=== PATIENT | female | born 1995 | race Caucasian/White ===

== ENCOUNTER 2016-12-05 21:15 | Emergency (ER) | payer OTHER ==
[2016-12-05 21:26] VITALS: BP 124/76
[2016-12-05] MEDS ORDERED: Sodium Chloride 0.9% 1,000 ML IV STA (21:42)
[2016-12-05] MEDS ORDERED: Ondansetron 4 MG/2 ML SDV IVPUSH ONE (21:42)
[2016-12-05] MEDS ORDERED: HYDROmorphone 0.5 MG/0.5 ML Syringe IVPUSH ONE (21:45)
[2016-12-05] MEDS: Sodium Chloride 0.9% 10 ML Syringe FLUSH PRN ×2 (22:00→23:55)
--- NOTE | 2016-12-05 22:33 | EDM.PDOC ---
ED HPI GI/ABDOMINAL - General Chief Complaint: Abdominal Pain Stated Complaint: RIGHT SIDE PAIN Time Seen by Provider: 12/05/16 21:36 Source of Information: Reports: Patient History Limitations: Reports: No limitations - History of Present Illness INITIAL COMMENTS - FREE TEXT/NARRATIVE: The patient presents with right lower quadrant abdominal pain. This started about 5pm tonight. It was dull to start with and it has gotten worse over the past hour. She also has a low grade temp of 100.7. She last ate around 5pm. Last BM was today and there was nothing abnormal. She has no dysuria. She has nausea but no vomiting. She does not think she is . She still has her gallbladder and appendix. Timing/Duration: Reports: Hour(s): (5pm tonight) Location: [facility] Quality: Reports: stabbing Severity: moderate Context: Denies: sick contact, bad/questionable food, out of country travel, recent surgery, recent trauma, lifting, activity/exercise Associated Symptoms (-Female): Reports: fever/chills, nausea/vomiting. Denies : chest pain, constipation - Related Data Allergies/ADRs: Allergies Allergy/AdvReac Type Severity Reaction Status Date / Time No Known Allergies Allergy Verified 12/05/16 21:26 Home Meds: Home Meds Nitrofurantoin [place]/Macrocryst [Macrobid] 100 mg PO BID #10 cap 12/06/16 [Rx] Tamsulosin HCl [Flomax] 0.4 mg PO DAILY #7 cap.er.24h 12/06/16 [Rx] Past Medical History - Past Health History Medical/Surgical History: Denies Medical/Surgical History - Past Surgical History HEENT Surgical History: Reports: Oral surgery Social & Family History - Tobacco Use Smoking Status *Q: Never Smoker Second Hand Smoke Exposure: No - Caffeine Use Caffeine Use: Reports: None - Recreational Drug Use Recreational Drug Use: No ED ROS GENERAL - Review of Systems Review Of Systems: See Below Constitutional: Reports: fever HEENT: Reports: No symptoms Respiratory: Reports: No Symptoms Cardiovascular: Reports: No symptoms Endocrine: Reports: no symptoms GI/Abdominal: Reports: Abdominal pain, Nausea. Denies: Diarrhea, Vomiting : Reports: no symptoms Musculoskeletal: Reports: no symptoms Skin: Reports: no symptoms Neurological: Reports: No Symptoms ED EXAM, GI/ABD - Physical Exam Exam: See Below Exam Limited By: No limitations General Appearance: alert, no apparent distress Ears: normal external exam Nose: normal inspection Head: atraumatic, normocephalic Neck: normal inspection Respiratory/Chest: no respiratory distress, lungs clear, normal breath sounds Cardiovascular: regular rate, rhythm, no edema, no murmur GI/Abdominal: soft, no organomegaly, tenderness (Moderate pain upon palpation to the right lower abdomen) Extremities: normal inspection Course - Vital Signs Last Recorded V/S: Last Vital Signs Temp 100.7 F H 12/05/16 21:22 Pulse 94 12/05/16 21:22 Resp 18 12/05/16 21:22 BP 124/76 12/05/16 21:22 Pulse Ox 98 12/05/16 21:22 - Orders/Labs/Meds Orders: Active Orders 24 hr Category Date Time Status Peripheral IV Care [RC] . DIRECTED Care 12/05/16 21:43 Active Abdomen Pelvis w Cont [CT] Stat Exams 12/05/16 21:42 Taken Sodium Chloride 0.9% [Saline Flush] Med 12/05/16 21:42 Active 10 ml FLUSH ASDIRECTED PRN ED Antiemetic Medication Reflex [OM.PC] Stat Oth 12/05/16 21:43 Ordered Peripheral IV Insertion Adult [OM.PC] Stat Oth 12/05/16 21:42 Ordered Medication Orders Sodium Chloride (Saline Flush) 10 ml FLUSH ASDIRECTED PRN PRN Reason: Keep Vein Open Last Admin: 12/05/16 23:55 Dose: 10 ml Admin: 12/05/16 22:00 Dose: 10 ml Labs: Laboratory Tests 12/05/16 12/05/16 12/05/16 Range/Units 22:00 22:00 22:00 WBC 6.17 (3.98-10.04) K/mm3 RBC 4.41 (3.98-5.22) M/mm3 Hgb 12.5 (11.2-15.7) gm/L Hct 38.4 (34.1-44.9) % MCV 87.1 (79.4-94.8) fl MCH 28.3 (25.6-32.2) pg MCHC 32.6 (32.2-35.5) g/dl RDW Std Deviation 42.0 (36.4-46.3) fL Plt Count 294 (182-369) K/mm3 MPV 9.7 (9.4-12.3) fl Neut % (Auto) 71.8 H (34.0-71.1) % Lymph % (Auto) 16.7 L (19.3-51.7) % Banner % (Auto) 10.7 (4.7-12.5) % Eos % (Auto) 0.5 L (0.7-5.8) Baso % (Auto) 0.3 (0.1-1.2) % Neut # (Auto) 4.43 (1.56-6.13) K/mm3 Lymph # (Auto) 1.03 L (1.18-3.74) K/mm3 [place] # (Auto) 0.66 H (0.24-0.36) K/mm3 Eos # (Auto) 0.03 L (0.04-0.36) K/mm3 Baso # (Auto) 0.02 (0.01-0.08) K/mm3 Sodium 139 (136-145) mEq/L Potassium 3.6 (3.5-5.1) mEq/L Chloride 103 (98-107) mEq/L Carbon Dioxide 24 (21-32) mEq/L Anion Gap 15.6 H (5-15) BUN 10 (7-18) mg/dL Creatinine 0.9 (0.55-1.02) mg/dL Est Cr Clr Drug Dosing 81.79 mL/min Estimated GFR (MDRD) > 60 (>60) mL/min BUN/Creatinine Ratio 11.1 L (14-18) Glucose 99 (74-106) mg/dL Calcium 9.7 (8.5-10.1) mg/dL Total Bilirubin 0.5 (0.2-1.0) mg/dL AST 16 (15-37) U/L ALT 20 (14-59) U/L Alkaline Phosphatase 69 (46-116) U/L Total Protein 8.7 H (6.4-8.2) g/dl Albumin 4.2 (3.4-5.0) g/dl Globulin 4.5 gm/dL Albumin/Globulin Ratio 0.9 L (1-2) Lipase 289 (73-393) U/L HCG, Qual Negative (NEGATIVE) Urine Color (Yellow) Urine Appearance (Clear) Urine pH (5.0-8.0) Ur Specific [place] (1.005-1.030) Urine Protein (Negative) Urine Glucose (UA) (Negative) Urine Ketones (Negative) Urine Occult Blood (Negative) Urine Nitrite (Negative) Urine Bilirubin (Negative) Urine Urobilinogen (0.2-1.0) Ur Leukocyte Esterase (Negative) Urine RBC (0-5) /hpf Urine WBC (0-5) /hpf Ur Epithelial Cells Ur Squamous Epith Cells (0-5) /hpf Urine Bacteria (FEW) /hpf Urine Mucus (FEW) /hpf 12/05/16 Range/Units 23:11 WBC (3.98-10.04) K/mm3 RBC (3.98-5.22) M/mm3 Hgb (11.2-15.7) gm/L Hct (34.1-44.9) % MCV (79.4-94.8) fl MCH (25.6-32.2) pg MCHC (32.2-35.5) g/dl RDW Std Deviation (36.4-46.3) fL Plt Count (182-369) K/mm3 MPV (9.4-12.3) fl Neut % (Auto) (34.0-71.1) % Lymph % (Auto) (19.3-51.7) % [place] % (Auto) (4.7-12.5) % Eos % (Auto) (0.7-5.8) Baso % (Auto) (0.1-1.2) % Neut # (Auto) (1.56-6.13) K/mm3 Lymph # (Auto) (1.18-3.74) K/mm3 [place] # (Auto) (0.24-0.36) K/mm3 Eos # (Auto) (0.04-0.36) K/mm3 Baso # (Auto) (0.01-0.08) K/mm3 Sodium (136-145) mEq/L Potassium (3.5-5.1) mEq/L Chloride (98-107) mEq/L Carbon Dioxide (21-32) mEq/L Anion Gap (5-15) BUN (7-18) mg/dL Creatinine (0.55-1.02) mg/dL Est Cr Clr Drug Dosing mL/min Estimated GFR (MDRD) (>60) mL/min BUN/Creatinine Ratio (14-18) Glucose (74-106) mg/dL Calcium (8.5-10.1) mg/dL Total Bilirubin (0.2-1.0) mg/dL AST (15-37) U/L ALT (14-59) U/L Alkaline Phosphatase (46-116) U/L Total Protein (6.4-8.2) g/dl Albumin (3.4-5.0) g/dl Globulin gm/dL Albumin/Globulin Ratio (1-2) Lipase (73-393) U/L HCG, Qual (NEGATIVE) Urine Color Yellow (Yellow) Urine Appearance Clear (Clear) Urine pH 7.0 (5.0-8.0) Ur Specific [place] 1.015 (1.005-1.030) Urine Protein 1+ H (Negative) Urine Glucose (UA) Negative (Negative) Urine Ketones Negative (Negative) Urine Occult Blood 1+ H (Negative) Urine Nitrite Negative (Negative) Urine Bilirubin Negative (Negative) Urine Urobilinogen 0.2 (0.2-1.0) Ur Leukocyte Esterase 2+ H (Negative) Urine RBC 0-5 (0-5) /hpf Urine WBC 30-40 H (0-5) /hpf Ur Epithelial Cells Not Reportable Ur Squamous Epith Cells 0-5 (0-5) /hpf Urine Bacteria Moderate H (FEW) /hpf Urine Mucus Not seen (FEW) /hpf Meds: Medications Generic Name Dose Route Start Last Admin Trade Name Freq PRN Reason Stop Dose Admin Sodium Chloride 10 ml 12/05/16 21:42 12/05/16 23:55 Saline Flush FLUSH 10 ml ASDIRECTED PRN Administration Keep Vein Open Discontinued Medications Generic Name Dose Route Start Last Admin Trade Name Freq PRN Reason Stop Dose Admin Diatrizoate Meglum/Diatrizoate Sod 90 ml 12/05/16 23:29 12/05/16 23:54 Gastrografin 37% PO 12/05/16 23:30 90 ml ONETIME ONE Administration Hydromorphone HCl 0.5 mg 12/05/16 21:45 12/05/16 22:14 Dilaudid IVPUSH 12/05/16 21:46 0.5 mg ONETIME ONE Administration Sodium Chloride 1,000 mls @ 1,000 mls/hr 12/05/16 21:42 12/05/16 22:09 Normal Saline IV 12/05/16 22:41 1,000 mls/hr .BOLUS STA Administration Iopamidol 125 ml 12/05/16 23:29 12/05/16 23:54 Isovue-300 (61%) IVPUSH 12/05/16 23:30 125 ml ONETIME ONE Administration Ondansetron HCl 4 mg 12/05/16 21:42 12/05/16 22:11 Zofran IVPUSH 12/05/16 21:43 4 mg ONETIME ONE Administration - Re-Assessments/Exams Free Text/Narrative Re-Assessment/Exam: 12/05/16 22:32 I ordered an IV NS 1L bolus, zofran 4mg IV and dilaudid 0.5mg IV. I will get labs, UA and CT. 12/06/16 00:54 Her WBC was normal. Her CMP looks good. Her UA shows some blood and a UTI. Her CT shows question of small punctate 2mm calculus at the proximal right ureter. Correlate with any symptoms of hemaruria. Bilateral adnexal cysts. Trace free fluid in the pelvis. No signs of appendicitis. She did have some flank pain when this all started. It appear she has a kidney stone and UTI. I will give her a macrobid here and flomax and a prescription for more as well as a prescription for some percocet. Departure - Departure Time of Disposition: 01:00 Disposition: Home, Self-Care 01 Condition: good Clinical Impression: Kidney stone, Ureteral calculus, right UTI (urinary tract infection) Qualifiers: Urinary tract infection type: site unspecified Hematuria presence: with hematuria Qualified Code(s): N39.0 - Urinary tract infection, site not specified ; R31.9 - Hematuria, unspecified Prescriptions: Nitrofurantoin Banner/Macrocryst [Macrobid] 100 mg PO BID #10 cap Tamsulosin HCl [Flomax] 0.4 mg PO DAILY #7 cap.er.24h Referrals: Pam Mcleod MD [Primary Care Provider] - 1 Week Gary Mcfarland MD [Physician] - 1 Week Forms: ED Department Discharge Additional Instructions: Drink plenty of fluids. Take the flomax daily until gone. Take the macrobid 2 times per day for 5 days. Take motrin or aleve for pain or use the percocet for pain. Please return if you are worse. - My Orders Last 24 Hours: My Active Orders 12/05/16 21:42 Abdomen Pelvis w Cont [CT] Stat Sodium Chloride 0.9% [Saline Flush] 10 ml FLUSH ASDIRECTED PRN Peripheral IV Insertion Adult [OM.PC] Stat 12/05/16 21:43 Peripheral IV Care [RC] . DIRECTED ED Antiemetic Medication Reflex [OM.PC] Stat - Assessment/Plan Last 24 Hours: My Active Orders 12/05/16 21:42 Abdomen Pelvis w Cont [CT] Stat Sodium Chloride 0.9% [Saline Flush] 10 ml FLUSH ASDIRECTED PRN Peripheral IV Insertion Adult [OM.PC] Stat 12/05/16 21:43 Peripheral IV Care [RC] . DIRECTED ED Antiemetic Medication Reflex [OM.PC] Stat
[2016-12-05] MEDS ORDERED: Iopamidol 612 MG/ML 150 ML Bottle IVPUSH ONE (23:29)
[2016-12-05] MEDS ORDERED: Diatrizoate Meglumine/Diatrizoate Sodium 37% 120 ML Bottle PO ONE (23:29)
[2016-12-06] MEDS ORDERED: Nitrofurantoin Monohydrate/Macrocrystalline 100 MG Cap PO ONE (00:56)
[2016-12-06] MEDS ORDERED: Tamsulosin 0.4 MG Cap.ER PO ONE (00:56)
--- NOTE | 2016-12-06 11:45 | CT ---
CT abdomen and pelvis Technique: Multiple axial sections were obtained from above the dome of the diaphragm inferiorly through the pubic symphysis. Intravenous and oral contrast was utilized. Comparison: Previous CT study of 03/24/15. Findings: Visualized lung bases are clear. Liver shows no focal parenchymal abnormality. Spleen appears within normal limits. Pancreas appears normal. Adrenal glands show no nodule. Slightly prominent collecting system of the right kidney is seen. This is caused by a proximal obstructing stone within the right ureter measuring approximately 5 mm. Cyst noted within the lower right kidney measuring approximately 1.1 cm in size. Aorta shows no aneurysmal dilatation. No retroperitoneal adenopathy or mesenteric abnormalities are seen. No pelvic mass or adenopathy noted. Minimal free fluid seen within the pelvis which is felt to be physiologic. Mild increased stool noted within the transverse and right colon. Appendix is not optimally seen but no dilated appendix is identified. Delayed images show contrast within the ureters and bladder. Impression: 1. Slight right-sided hydronephrosis felt to be caused by 5 mm obstructing stone within the proximal right ureter. 2. Incidental right renal cyst. 3. Mild increased stool within the right colon and transverse colon. Agree with preliminary report issued by [employer], although I believe the obstructing stone is larger than 2 mm as noted on the preliminary report (preliminary report dictated on 12/06/16, 1:39 AM Central Time) Diagnostic code #3
== END 2016-12-06 01:26 | disposition home or self-care (01) ==
LOC: JD.ED 21:15
DX: N13.2 Hydronephrosis with renal and ureteral calculous obstruction (principal); N39.0 Urinary tract infection, site not specified; R31.9 Hematuria, unspecified
CPT/HCPCS: 36415; 74177; 80053; 81001; 83690; 84703; 85025; 96361; 96374; 96375; 99284; A9270; J1170; J2405; J7040; J7050; Q9963; Q9967

== ENCOUNTER 2019-12-15 19:00 | Inpatient (IN) | payer OTHER ==
[2019-12-15] MEDS ORDERED: Nalbuphine 10 MG/ML Syringe IVPUSH PRN (19:50)
[2019-12-15] MEDS ORDERED: Sodium Chloride 0.9% 10 ML Syringe FLUSH PRN (19:50)
[2019-12-15] MEDS ORDERED: Ondansetron 4 MG/2 ML SDV IVPUSH PRN (19:50)
[2019-12-15] MEDS ORDERED: Misoprostol 25 MCG (1/4 of 100 MCG) Tab VAG ONE (19:52)
[2019-12-15] MEDS ORDERED: Misoprostol 25 MCG (1/4 of 100 MCG) Tab ONE (19:58)
[2019-12-15] MEDS ORDERED: Oxytocin/Lactated Ringers 10 UNIT/1,000 ML BAG IV SCH (20:00)
[2019-12-15] MEDS ORDERED: ePHEDrine 50 MG/ML SDV IVPUSH PRN (22:16)
[2019-12-15] MEDS ORDERED: diphenhydrAMINE 50 MG/ML SDV IVPUSH PRN (22:16)
[2019-12-15] MEDS ORDERED: Bupivacaine/fentaNYL/NS 100 ML Bag EPIDUR PRN (22:16)
[2019-12-16] MEDS ORDERED: Lidocaine 2% with EPINEPHrine 1:200,000 20 ML SDV ONE
[2019-12-16] MEDS ORDERED: Bupivacaine 0.25% 10 ML SDV ONE
[2019-12-16] MEDS ORDERED: Misoprostol 25 MCG (1/4 of 100 MCG) Tab VAG ONE (01:04)
--- NOTE | 2019-12-16 01:24 | PCM.LDHP ---
L&D History of Present Illness - General Date of Service: 12/16/19 Admit Problem/Dx: Patient Status Order with Admit Dx/Problem 12/15/19 19:50 Patient Status [ADT] Routine Admission Diagnosis/Problem Admission Diagnosis/Problem - History of Present Illness Introduction:: 24 year old at 39w2 here for induction of labor PNC with myself without complications - early suspicion of club foot on ultrasound. Otherwise no issues. - Related Data Allergies/Adverse Reactions: Allergies Allergy/AdvReac Type Severity Reaction Status Date / Time No Known Allergies Allergy Verified 07/02/18 23:02 Home Medications: Home Meds Acetaminophen [Pain Relief] 650 mg PO ASDIRECTED PRN 12/15/19 [History] Pnv No.103/Folic/Om3s/Fish Oil [ Gummies] 2 tab.chew PO DAILY 12/15/19 [ History] Past Medical History - Past Health History Medical/Surgical History: Denies Medical/Surgical History Cardiovascular History: Reports: None Respiratory History: Reports: None Gastrointestinal History: Reports: Other (See Below) Other Gastrointestinal History: Constipation Genitourinary History: Reports: Pyelonephritis, Renal Calculus Musculoskeletal History: Reports: None Neurological History: Reports: None Psychiatric History: Reports: None Endocrine/Metabolic History: Reports: None Hematologic History: Reports: None Immunologic History: Reports: None Oncologic (Cancer) History: Reports: None Dermatologic History: Reports: None - Infectious Disease History Infectious Disease History: Reports: Chicken Pox - Past Surgical History HEENT Surgical History: Reports: Oral Surgery GI Surgical History: Reports: None Female Surgical History: Reports: Other (See Below) Other Female Surgeries/Procedures: renal stent Social & Family History - Family History Family Medical History: Noncontributory - Tobacco Use Smoking Status *Q: Never Smoker Second Hand Smoke Exposure: No - Caffeine Use Caffeine Use: Reports: Coffee - Recreational Drug Use Recreational Drug Use: No H&P Review of Systems - Review of Systems: Review Of Systems: See Below General: Reports: No Symptoms HEENT: Reports: No Symptoms Pulmonary: Reports: No Symptoms Cardiovascular: Reports: No Symptoms Gastrointestinal: Reports: No Symptoms Genitourinary: Reports: No Symptoms Musculoskeletal: Reports: No Symptoms Skin: Reports: No Symptoms Psychiatric: Reports: No Symptoms Neurological: Reports: No Symptoms Hematologic/Lymphatic: Reports: No Symptoms Immunologic: Reports: No Symptoms L&D Exam - Exam Exam: See Below - Vital Signs Vital Signs: Last Vital Signs Temp 37.3 C 12/15/19 20:00 Pulse Resp 16 12/15/19 20:00 BP 132/75 12/15/19 20:00 Pulse Ox 99 12/15/19 20:00 Weight: 83.007 kg - OB Specific Contraction Intensity: Mild Movement: Active Heart Tones: Present Heart Rate (FHR) Variability: Moderate (6-25 bmp) Presentation: Vertex - Garcia Score Garcia Score Cervix Position: Midposition Garcia Score Consistency: Soft Garcia Score Effacement: 31-50% Garcia Score Dilation: 1-2 cm Garcia Score 's Station: -3 Garcia Score Total: 5 - Exam General: Alert, Oriented HEENT: PERRLA, Conjunctiva Clear, EACs Clear, EOMI, Hearing Intact, Mucosa Moist & [place], Nares Patent, Normal Nasal Septum, Posterior Pharynx Clear, TMs Clear Neck: Supple, Trachea Midline Lungs: Clear to Auscultation, Normal Respiratory Effort Cardiovascular: Regular Rate, Regular Rhythm GI/Abdominal Exam: Normal Bowel Sounds, Soft, Non-Tender, No Organomegaly, No Distention, No Abnormal Bruit, No Mass, Pelvis Stable Back Exam: Normal Inspection, Full Range of Motion Extremities: Normal Inspection, Normal Range of Motion, Non-Tender, No Pedal Edema, Normal Capillary Refill Skin: Warm, Dry, Intact Neurological: Cranial Nerves Intact, Reflexes Equal Bilateral Psychiatric: Alert, Normal Affect, Normal Mood - Patient Data Lab Results Last 24 hrs: Laboratory Results - last 24 hr 12/15/19 12/15/19 Range/Units 20:15 20:15 WBC 6.76 (3.98-10.04) K/mm3 RBC 4.25 (3.98-5.22) M/mm3 Hgb 12.3 D (11.2-15.7) gm/dl Hct 37.2 (34.1-44.9) % MCV 87.5 D (79.4-94.8) fl MCH 28.9 (25.6-32.2) pg MCHC 33.1 (32.2-35.5) g/dl RDW Std Deviation 43.6 (36.4-46.3) fL Plt Count 246 D (182-369) K/mm3 MPV 9.8 (9.4-12.3) fl Neut % (Auto) 65.6 (34.0-71.1) % Lymph % (Auto) 22.0 (19.3-51.7) % [place] % (Auto) 11.7 (4.7-12.5) % Eos % (Auto) 0.3 L (0.7-5.8) Baso % (Auto) 0.1 (0.1-1.2) % Neut # (Auto) 4.43 (1.56-6.13) K/mm3 Lymph # (Auto) 1.49 (1.18-3.74) K/mm3 [place] # (Auto) 0.79 H (0.24-0.36) K/mm3 Eos # (Auto) 0.02 L (0.04-0.36) K/mm3 Baso # (Auto) 0.01 (0.01-0.08) K/mm3 RPR Non-reactive (NONREACTIVE) Result Diagrams: 12/15/19 20:15 Problem List Initiated/Reviewed/Updated: Yes Orders Last 24hrs: Active Orders 24 hr Category Date Time Status Patient Status [ADT] Routine ADT 12/15/19 19:50 Active Activity as Tolerated [RC] PFP Care 12/15/19 19:50 Active Communication Order [RC] ASDIRECTED Care 12/15/19 19:50 Active Communication Order [RC] ASDIRECTED Care 12/15/19 22:16 Active Cooling Warming Measures [RC] ASDIRECTED Care 12/15/19 22:16 Active Heart Tones [RC] ASDIRECTED Care 12/15/19 19:50 Active Non Stress Test [RC] PER UNIT ROUTINE Care 12/15/19 19:50 Active Notify Provider [RC] ASDIRECTED Care 12/15/19 22:16 Active Notify Provider [RC] PFP Care 12/15/19 19:50 Active Notify Provider [RC] PRN Care 12/15/19 19:50 Active Oxygen Therapy [RC] ASDIRECTED Care 12/15/19 22:16 Active Peripheral IV Care [RC] . DIRECTED Care 12/15/19 19:50 Active Pulse Oximetry [RC] ASDIRECTED Care 12/15/19 22:16 Active Urinary Catheter Assessment [RC] ASDIRECTED Care 12/15/19 19:50 Active Vital Signs [RC] PER UNIT ROUTINE Care 12/15/19 19:50 Active Regular Diet [DIET] Diet 12/15/19 Breakfast Active Bupivacaine/fentaNYL/NS [fentaNYL/Bupivacaine/NS 2 MCG- Med 12/15/19 22:16 Active 0.125% 100 ML] 0 ml EPIDUR CONTINUOUS PRN Lactated Ringers [Ringers, Lactated] 1,000 ml Med 12/15/19 20:00 Active IV ASDIRECTED Nalbuphine [Nubain] Med 12/15/19 19:50 Active 10 mg IVPUSH Q2H PRN Ondansetron [Zofran] Med 12/15/19 19:50 Active 4 mg IVPUSH Q4H PRN Oxytocin/Lactated Ringers [Pitocin in LR 10 Units/1,000 Med 12/15/19 20:00 Active ML] 10 unit in 1,000 ml IV .CONTINUOUS Sodium Chloride 0.9% [Saline Flush] Med 12/15/19 19:50 Active 10 ml FLUSH ASDIRECTED PRN diphenhydrAMINE [Benadryl] Med 12/15/19 22:16 Active 25 mg IVPUSH Q6H PRN ePHEDrine [ePHEDrine sulfate] Med 12/15/19 22:16 Active 5 mg IVPUSH ASDIRECTED PRN fentaNYL [Sublimaze] Med 12/15/19 22:16 Active 100 mcg EPIDUR Q3H PRN Electronic Heart Tones Ext w TOCO [WOMSER] Oth 12/15/19 19:50 Ordered Routine Electronic Heart Tones Internal [WOMSER] Per Unit Oth 12/15/19 19:50 Ordered Routine Peripheral IV Insertion Adult [OM.PC] Routine Oth 12/15/19 19:50 Ordered Resuscitation Status Routine Resus Stat 12/15/19 19:50 Ordered Medication Orders Diphenhydramine HCl (Benadryl) 25 mg IVPUSH Q6H PRN PRN Reason: Itching Ephedrine Sulfate (Ephedrine Sulfate) 5 mg IVPUSH ASDIRECTED PRN PRN Reason: HYPOTENTSION Fentanyl (Sublimaze) 100 mcg EPIDUR Q3H PRN PRN Reason: Pain Fentanyl/Bupivacaine HCl (Fentanyl/Bupivacaine/Ns 2 Mcg-0.125% 100 Ml) 0 ml EPIDUR CONTINUOUS PRN PRN Reason: Pain Lactated Ringer's (Ringers, Lactated) 1,000 mls @ 100 mls/hr IV ASDIRECTED JEANETTE Oxytocin/Lactated Ringer's (Pitocin In Lr 10 Units/1,000 Ml) 10 unit in 1,000 mls @ 500 mls/hr IV .CONTINUOUS JEANETTE Nalbuphine HCl (Nubain) 10 mg IVPUSH Q2H PRN PRN Reason: Pain Ondansetron HCl (Zofran) 4 mg IVPUSH Q4H PRN PRN Reason: Nausea/Vomiting Sodium Chloride (Saline Flush) 10 ml FLUSH ASDIRECTED PRN PRN Reason: Keep Vein Open Assessment/Plan Comment:: Term induction Cytotec. Reassess at time of next dose.
--- NOTE | 2019-12-16 01:25 | PCM.PNLD ---
Labor Progress Note - VS & Meds Vital Signs: Last Vital Signs Temp 37.3 C 12/15/19 20:00 Pulse Resp 16 12/15/19 20:00 BP 132/75 12/15/19 20:00 Pulse Ox 99 12/15/19 20:00 Active Medications: Current Medications Diphenhydramine HCl (Benadryl) 25 mg IVPUSH Q6H PRN PRN Reason: Itching Ephedrine Sulfate (Ephedrine Sulfate) 5 mg IVPUSH ASDIRECTED PRN PRN Reason: HYPOTENTSION Fentanyl (Sublimaze) 100 mcg EPIDUR Q3H PRN PRN Reason: Pain Fentanyl/Bupivacaine HCl (Fentanyl/Bupivacaine/Ns 2 Mcg-0.125% 100 Ml) 0 ml EPIDUR CONTINUOUS PRN PRN Reason: Pain Lactated Ringer's (Ringers, Lactated) 1,000 mls @ 100 mls/hr IV ASDIRECTED JEANETTE Oxytocin/Lactated Ringer's (Pitocin In Lr 10 Units/1,000 Ml) 10 unit in 1,000 mls @ 500 mls/hr IV .CONTINUOUS JEANETTE Nalbuphine HCl (Nubain) 10 mg IVPUSH Q2H PRN PRN Reason: Pain Ondansetron HCl (Zofran) 4 mg IVPUSH Q4H PRN PRN Reason: Nausea/Vomiting Sodium Chloride (Saline Flush) 10 ml FLUSH ASDIRECTED PRN PRN Reason: Keep Vein Open Discontinued Medications Misoprostol (Cytotec) 50 mcg VAG ONETIME ONE Stop: 12/15/19 19:53 Last Admin: 12/15/19 20:06 Dose: 50 mcg Misoprostol (Cytotec) Confirm Administered Dose 25 mcg .ROUTE .STK-MED ONE Stop: 12/15/19 19:59 Last Admin: 12/15/19 20:07 Dose: Not Given Misoprostol (Cytotec) 25 mcg VAG ONETIME ONE Stop: 12/16/19 01:05 - Uterine Contractions Uterine Monitoring Mode: External [place] Contraction Intensity: Mild - Monitoring Monitor Mode: External Ultrasound Heart Rate (FHR) Variability: Moderate (6-25 bmp) Strip Review: Category I - Vaginal Exam Dilation (cm): 3.5 Effacement (Percent): 70 Station: -2 Cervical Position: Midposition - Labor Progress (Free Text) Labor Progress: Good progress. Second cytotec placed. Likely AROM or pitocin at next dose.
[2019-12-16] MEDS ORDERED: Nalbuphine 10 MG/ML Syringe IVPUSH PRN (03:20)
--- NOTE | 2019-12-16 04:51 | PCM.PNLD ---
Labor Progress Note - VS & Meds Vital Signs: Last Vital Signs Temp 37.3 C 12/15/19 20:00 Pulse Resp 16 12/15/19 20:00 BP 132/75 12/15/19 20:00 Pulse Ox 99 12/15/19 20:00 Active Medications: Current Medications Diphenhydramine HCl (Benadryl) 25 mg IVPUSH Q6H PRN PRN Reason: Itching Ephedrine Sulfate (Ephedrine Sulfate) 5 mg IVPUSH ASDIRECTED PRN PRN Reason: HYPOTENTSION Fentanyl (Sublimaze) 100 mcg EPIDUR Q3H PRN PRN Reason: Pain Fentanyl/Bupivacaine HCl (Fentanyl/Bupivacaine/Ns 2 Mcg-0.125% 100 Ml) 0 ml EPIDUR CONTINUOUS PRN PRN Reason: Pain Lactated Ringer's (Ringers, Lactated) 1,000 mls @ 100 mls/hr IV ASDIRECTED JEANETTE Oxytocin/Lactated Ringer's (Pitocin In Lr 10 Units/1,000 Ml) 10 unit in 1,000 mls @ 500 mls/hr IV .CONTINUOUS JEANETTE Nalbuphine HCl (Nubain) 10 mg IVPUSH Q3H PRN PRN Reason: Pain Last Admin: 12/16/19 03:26 Dose: 10 mg Ondansetron HCl (Zofran) 4 mg IVPUSH Q4H PRN PRN Reason: Nausea/Vomiting Sodium Chloride (Saline Flush) 10 ml FLUSH ASDIRECTED PRN PRN Reason: Keep Vein Open Discontinued Medications Misoprostol (Cytotec) 50 mcg VAG ONETIME ONE Stop: 12/15/19 19:53 Last Admin: 12/15/19 20:06 Dose: 50 mcg Misoprostol (Cytotec) Confirm Administered Dose 25 mcg .ROUTE .STK-MED ONE Stop: 12/15/19 19:59 Last Admin: 12/15/19 20:07 Dose: Not Given Misoprostol (Cytotec) 25 mcg VAG ONETIME ONE Stop: 12/16/19 01:05 Last Admin: 12/16/19 01:10 Dose: 25 mcg Nalbuphine HCl (Nubain) 10 mg IVPUSH Q2H PRN PRN Reason: Pain - Uterine Contractions Uterine Monitoring Mode: External [place] Contraction Intensity: Mild - Monitoring Monitor Mode: External Ultrasound Heart Rate (FHR) Variability: Moderate (6-25 bmp) Strip Review: Category I - Vaginal Exam Dilation (cm): 5 Effacement (Percent): 80 Station: -1 Cervical Position: Midposition - Labor Progress (Free Text) Labor Progress: AROM clear fluid.
[2019-12-16] MEDS: Lactated Ringers 1,000 ML IV SCH ×5 (04:58→13:07)
[2019-12-16] MEDS ORDERED: Oxytocin/Lactated Ringers 10 UNIT/1,000 ML BAG IV SCH (05:30)
[2019-12-16] MEDS: fentaNYL 100 MCG/2 ML SDV EPIDUR PRN ×2 (06:19→12:16)
--- NOTE | 2019-12-16 06:41 | PCM.PREANE ---
Preanesthetic Assessment - Procedure Proposed Procedure: epidural - Anesthesia/Transfusion/Family Hx Anesthesia History: Prior Anesthesia Without Reaction Family History of Anesthesia Reaction: No Transfusion History: No Prior Transfusion(s) - Review of Systems General: Fatigue Pulmonary: No Symptoms Cardiovascular: No Symptoms Gastrointestinal: Abdominal Pain (labor) Neurological: No Symptoms Other: Reports: None - Physical Assessment Vital Signs: Last Vital Signs Temp 37.3 C 12/15/19 20:00 Pulse Resp 16 12/15/19 20:00 BP 132/75 12/15/19 20:00 Pulse Ox 99 12/15/19 20:00 Height: 1.63 m Weight: 83.007 kg Mental Status: Alert & Oriented x3 Airway Class: Mallampati = 1 Dentition: Reports: Normal Dentition Thyro-Mental Finger Breadths: 3 Mouth Opening Finger Breadths: 3 ROM/Head Extension: Full Lungs: Clear to Auscultation, Normal Respiratory Effort Cardiovascular: Regular Rate, Regular Rhythm - Lab Values: Laboratory Last Values WBC 6.76 K/mm3 (3.98-10.04) 12/15/19 20:15 RBC 4.25 M/mm3 (3.98-5.22) 12/15/19 20:15 Hgb 12.3 gm/dl (11.2-15.7) D 12/15/19 20:15 Hct 37.2 % (34.1-44.9) 12/15/19 20:15 MCV 87.5 fl (79.4-94.8) D 12/15/19 20:15 MCH 28.9 pg (25.6-32.2) 12/15/19 20:15 MCHC 33.1 g/dl (32.2-35.5) 12/15/19 20:15 RDW Std Deviation 43.6 fL (36.4-46.3) 12/15/19 20:15 Plt Count 246 K/mm3 (182-369) D 12/15/19 20:15 MPV 9.8 fl (9.4-12.3) 12/15/19 20:15 Neut % (Auto) 65.6 % (34.0-71.1) 12/15/19 20:15 Lymph % (Auto) 22.0 % (19.3-51.7) 12/15/19 20:15 Clarke % (Auto) 11.7 % (4.7-12.5) 12/15/19 20:15 Eos % (Auto) 0.3 (0.7-5.8) L 12/15/19 20:15 Baso % (Auto) 0.1 % (0.1-1.2) 12/15/19 20:15 Neut # (Auto) 4.43 K/mm3 (1.56-6.13) 12/15/19 20:15 Lymph # (Auto) 1.49 K/mm3 (1.18-3.74) 12/15/19 20:15 Clarke # (Auto) 0.79 K/mm3 (0.24-0.36) H 12/15/19 20:15 Eos # (Auto) 0.02 K/mm3 (0.04-0.36) L 12/15/19 20:15 Baso # (Auto) 0.01 K/mm3 (0.01-0.08) 12/15/19 20:15 RPR Non-reactive (NONREACTIVE) 12/15/19 20:15 - Allergies Allergies/Adverse Reactions: Allergies Allergy/AdvReac Type Severity Reaction Status Date / Time No Known Allergies Allergy Verified 07/02/18 23:02 - Anesthesia Plan Pre-Op Medication Ordered: None - Acknowledgements Anesthesia Type Planned: Epidural Pt an Appropriate Candidate for the Planned Anesthesia: Yes Alternatives and Risks of Anesthesia Discussed w Pt/Guardian: Yes Pt/Guardian Understands and Agrees with Anesthesia Plan: Yes PreAnesthesia Questionnaire - Past Health History Medical/Surgical History: Denies Medical/Surgical History Cardiovascular History: Reports: None Respiratory History: Reports: None Gastrointestinal History: Reports: GERD, Other (See Below) Other Gastrointestinal History: Constipation Genitourinary History: Reports: Pyelonephritis, Renal Calculus Musculoskeletal History: Reports: None Neurological History: Reports: None Psychiatric History: Reports: None Endocrine/Metabolic History: Reports: None Hematologic History: Reports: None Immunologic History: Reports: None Oncologic (Cancer) History: Reports: None Dermatologic History: Reports: None - Infectious Disease History Infectious Disease History: Reports: Chicken Pox - Past Surgical History HEENT Surgical History: Reports: Oral Surgery GI Surgical History: Reports: None Female Surgical History: Reports: Other (See Below) Other Female Surgeries/Procedures: renal stent - SUBSTANCE USE Smoking Status *Q: Never Smoker Second Hand Smoke Exposure: No Recreational Drug Use History: No - HOME MEDS Home Medications: Home Meds Acetaminophen [Pain Relief] 650 mg PO ASDIRECTED PRN 12/15/19 [History] Pnv No.103/Folic/Om3s/Fish Oil [ Gummies] 2 tab.chew PO DAILY 12/15/19 [ History] - CURRENT (IN HOUSE) MEDS Current Meds: Current Medications Diphenhydramine HCl (Benadryl) 25 mg IVPUSH Q6H PRN PRN Reason: Itching Ephedrine Sulfate (Ephedrine Sulfate) 5 mg IVPUSH ASDIRECTED PRN PRN Reason: HYPOTENTSION Fentanyl (Sublimaze) 100 mcg EPIDUR Q3H PRN PRN Reason: Pain Last Admin: 12/16/19 06:19 Dose: 100 mcg Fentanyl/Bupivacaine HCl (Fentanyl/Bupivacaine/Ns 2 Mcg-0.125% 100 Ml) 0 ml EPIDUR CONTINUOUS PRN PRN Reason: Pain Last Admin: 12/16/19 06:19 Dose: 100 ml Lactated Ringer's (Ringers, Lactated) 1,000 mls @ 100 mls/hr IV ASDIRECTED JEANETTE Last Admin: 12/16/19 05:52 Dose: 900 mls/hr Oxytocin/Lactated Ringer's (Pitocin In Lr 10 Units/1,000 Ml) 10 unit in 1,000 mls @ 500 mls/hr IV .CONTINUOUS JEANETTE Oxytocin/Lactated Ringer's (Pitocin In Lr 10 Units/1,000 Ml) 10 unit in 1,000 mls @ 12 mls/hr IV TITRATE JEANETTE; Protocol Nalbuphine HCl (Nubain) 10 mg IVPUSH Q3H PRN PRN Reason: Pain Last Admin: 12/16/19 03:26 Dose: 10 mg Ondansetron HCl (Zofran) 4 mg IVPUSH Q4H PRN PRN Reason: Nausea/Vomiting Sodium Chloride (Saline Flush) 10 ml FLUSH ASDIRECTED PRN PRN Reason: Keep Vein Open Discontinued Medications Misoprostol (Cytotec) 50 mcg VAG ONETIME ONE Stop: 12/15/19 19:53 Last Admin: 12/15/19 20:06 Dose: 50 mcg Misoprostol (Cytotec) Confirm Administered Dose 25 mcg .ROUTE .STK-MED ONE Stop: 12/15/19 19:59 Last Admin: 12/15/19 20:07 Dose: Not Given Misoprostol (Cytotec) 25 mcg VAG ONETIME ONE Stop: 12/16/19 01:05 Last Admin: 12/16/19 01:10 Dose: 25 mcg Nalbuphine HCl (Nubain) 10 mg IVPUSH Q2H PRN PRN Reason: Pain
[2019-12-16] MEDS ORDERED: Lidocaine 1% 50 ML MDV ONE (15:54)
--- NOTE | 2019-12-16 16:18 | PCM.SN.2 ---
- Free Text/Narrative Note: Stage I - Patient presented for induction of labor. Cytotec, AROM and pitocin. Progressed to complete with overall reassuring FHT. Epidural anesthesia Stage II - of viable male, weight , APGARS 8/9 at 1553. Head delivered in controlled manner over intact perineum. Body and shoulders without difficulty. Vigorous cry. Shortly after delivery some retractions. Stage III - of intact placenta. 3vc. Second degree laceration repaired with 3-0 vicryl. EBL 400.
[2019-12-16] MEDS ORDERED: Lanolin 100% Cream 7 GM Tube TOP PRN (16:26)
[2019-12-16] MEDS ORDERED: Benzocaine/Menthol 20%-0.5% Spray 56 GM Canister TOP PRN (16:26)
[2019-12-16] MEDS ORDERED: Witch Hazel Medicated Pads 40/Jar TOP PRN (16:26)
--- NOTE | 2019-12-16 17:15 | PCM.SN.2 ---
- Free Text/Narrative Note: 1700 Received call from RN that patient with fever to 101.1. Feels warm to RN as well on assessment. No elevated temperature in labor. ROM occurred about 12 hours ago. Patient delivered about 45 minutes ago. No additional uterotonics, uterine exploration done after delivery per RN team. Baby now with signs of respiratory distress - level 2 status. Will start Amp/Gent for presumed late identification of chorioamnionitis. Asked RN to make counseling services director aware of maternal status and plan. Cher Hwang MD
[2019-12-16] MEDS: Ibuprofen 600 MG Tab PO PRN (17:25)
[2019-12-16] MEDS: Docusate Sodium 100 MG Cap PO PRN (17:25)
[2019-12-16] MEDS: Ampicillin 2 GM in Sodium Chloride 0.9% 100 ML IV SCH (19:22)
[2019-12-17] MEDS: Ampicillin 2 GM in Sodium Chloride 0.9% 100 ML IV SCH ×2 (01:04→06:59)
[2019-12-17] MEDS: Ibuprofen 600 MG Tab PO PRN ×3 (02:36→20:46)
--- NOTE | 2019-12-17 07:15 | PCM.PNPP ---
- General Info Date of Service: 12/17/19 Functional Status: Reports: Pain Controlled, Tolerating Diet, Ambulating, Urinating - Review of Systems General: Reports: No Symptoms Pulmonary: Reports: No Symptoms Cardiovascular: Reports: No Symptoms Gastrointestinal: Reports: No Symptoms Genitourinary: Reports: No Symptoms Musculoskeletal: Reports: No Symptoms Neurological: Reports: No Symptoms Systems Review Comment:: Feels well. Denies any fevers or chills - Patient Data Vital Signs - Most Recent: Last Vital Signs Temp 36.6 C 12/17/19 02:37 Pulse 85 12/17/19 02:37 Resp 16 12/17/19 02:37 BP 106/74 12/17/19 02:37 Pulse Ox 98 12/17/19 02:37 Weight - Most Recent: 83.007 kg I&O - Last 24 Hours: Intake & Output 12/16/19 12/17/19 12/17/19 22:59 06:59 14:59 Intake Total 6200 Balance 6200 Med Orders - Current: Current Medications Benzocaine/Menthol (Dermoplast Pain Relief [place]) 0 gm TOP ASDIRECTED PRN PRN Reason: Perineal Comfort Measure Last Admin: 12/16/19 17:26 Dose: 1 can Docusate Sodium (Colace) 100 mg PO BID PRN PRN Reason: Constipation Last Admin: 12/16/19 17:25 Dose: 100 mg Emollient Ointment (Lansinoh Hpa) 0 gm TOP ASDIRECTED PRN PRN Reason: Sore Nipples Ibuprofen (Motrin) 600 mg PO Q6H PRN PRN Reason: Mild pain or fever Last Admin: 12/17/19 02:36 Dose: 600 mg Witch Karla (Tucks) 1 pad TOP ASDIRECTED PRN PRN Reason: Pain Last Admin: 12/16/19 17:26 Dose: 1 container Discontinued Medications Diphenhydramine HCl (Benadryl) 25 mg IVPUSH Q6H PRN PRN Reason: Itching Ephedrine Sulfate (Ephedrine Sulfate) 5 mg IVPUSH ASDIRECTED PRN PRN Reason: HYPOTENTSION Fentanyl (Sublimaze) 100 mcg EPIDUR Q3H PRN PRN Reason: Pain Last Admin: 12/16/19 12:16 Dose: 100 mcg Fentanyl/Bupivacaine HCl (Fentanyl/Bupivacaine/Ns 2 Mcg-0.125% 100 Ml) 0 ml EPIDUR CONTINUOUS PRN PRN Reason: Pain Last Admin: 12/16/19 06:19 Dose: 100 ml Lactated Ringer's (Ringers, Lactated) 1,000 mls @ 100 mls/hr IV ASDIRECTED JEANETTE Last Admin: 12/16/19 13:07 Dose: 100 mls/hr Oxytocin/Lactated Ringer's (Pitocin In Lr 10 Units/1,000 Ml) 10 unit in 1,000 mls @ 500 mls/hr IV .CONTINUOUS JEANETTE Oxytocin/Lactated Ringer's (Pitocin In Lr 10 Units/1,000 Ml) 10 unit in 1,000 mls @ 12 mls/hr IV TITRATE JEANETTE; Protocol Last Titration: 12/16/19 08:32 Dose: 4 munits/min, 24 mls/hr Ampicillin Sodium 2 gm/ Sodium (Chloride) 100 mls @ 200 mls/hr IV Q6H JEANETTE Last Admin: 12/17/19 06:59 Dose: 200 mls/hr Gentamicin Sulfate 415 mg/ (Sodium Chloride) 110.375 mls @ 200 mls/hr IV ONETIME ONE Stop: 12/16/19 17:43 Last Admin: 12/16/19 18:18 Dose: 200 mls/hr Lidocaine HCl (Xylocaine 1%) Confirm Administered Dose 50 ml .ROUTE .STK-MED ONE Stop: 12/16/19 15:55 Last Admin: 12/16/19 16:27 Dose: 50 ml Misoprostol (Cytotec) 50 mcg VAG ONETIME ONE Stop: 12/15/19 19:53 Last Admin: 12/15/19 20:06 Dose: 50 mcg Misoprostol (Cytotec) Confirm Administered Dose 25 mcg .ROUTE .STK-MED ONE Stop: 12/15/19 19:59 Last Admin: 12/15/19 20:07 Dose: Not Given Misoprostol (Cytotec) 25 mcg VAG ONETIME ONE Stop: 12/16/19 01:05 Last Admin: 12/16/19 01:10 Dose: 25 mcg Nalbuphine HCl (Nubain) 10 mg IVPUSH Q2H PRN PRN Reason: Pain Nalbuphine HCl (Nubain) 10 mg IVPUSH Q3H PRN PRN Reason: Pain Last Admin: 12/16/19 03:26 Dose: 10 mg Ondansetron HCl (Zofran) 4 mg IVPUSH Q4H PRN PRN Reason: Nausea/Vomiting Sodium Chloride (Saline Flush) 10 ml FLUSH ASDIRECTED PRN PRN Reason: Keep Vein Open - Interaction Disposition, : to Nursery Infant Interaction: Unable to Hold at this Time Feeding: Other (see below) (pumping ) Support Person: Significant Other - Recovery Exam Fundal Tone: Firm Fundal Level: 1 Fingerbreadths Below Umbilicus Fundal Placement: Midline Lochia Amount: Scant Lochia Color: Rubra/Red Perineum Description: Intact, Minimal Bruising/Swelling Episiotomy/Laceration: Approximated Bladder Status: Voiding Urinary Elimination: Voided - Exam General: Alert, Oriented, Cooperative GI/Abdominal Exam: Soft, Non-Tender (no uterine tenderness ) Extremities: Normal Inspection Skin: Warm, Dry, Intact - Problem List Review Problem List Initiated/Reviewed/Updated: Yes - Assessment Assessment:: PPD#1 - Plan Plan:: * Will stop antibiotics today. Has been afebrile since initial fever * Pumping while baby in Level 2 nursery * Rhogam to be administered * Discharge home tomorrow
--- NOTE | 2019-12-17 07:34 | PCM48HPAN ---
Post Anesthesia Note - EVALUATION WITHIN 48HRS OF ANESTHETIC Vital Signs in Normal Range: Yes Patient Participated in Evaluation: Yes Respiratory Function Stable: Yes Airway Patent: Yes Cardiovascular Function Stable: Yes Hydration Status Stable: Yes Pain Control Satisfactory: Yes Nausea and Vomiting Control Satisfactory: Yes Mental Status Recovered: Yes Vital Signs: Last Vital Signs Temp 97.9 F 12/17/19 02:37 Pulse 85 12/17/19 02:37 Resp 16 12/17/19 02:37 BP 106/74 12/17/19 02:37 Pulse Ox 98 12/17/19 02:37 - COMMENTS/OBSERVATIONS Free Text/Narrative:: no complaints- happy
[2019-12-17] MEDS: Docusate Sodium 100 MG Cap PO PRN (20:45)
--- NOTE | 2019-12-18 07:12 | PCM.DCSUM1 ---
Discharge Summary - Hospital Course Diagnosis: Stroke: No - Discharge Data Discharge Date: 12/18/19 Discharge Disposition: Home, Self-Care 01 Condition: Good - Referral to Home Health Primary Care Physician: Jacqueline Vaz MD - Patient Summary/Data Complications: None Consults: None Recommended Follow-up Testing/Procedures: Follow up in 3 weeks for check Hospital Course: 24 y/o at 39 3/7 wks who presented for elective IOL . Done with cytotec, AROM/pitocin. Underwent an uncomplicated , but soon after delivery (about 45 minutes after) noted to have fever. Baby also Level 2 status for respiratory distress. Given concerns for late manifestation of chorioamnionitis she was started on Gent and Ampicillin. Medications discontinued on PPD#1 and did well without further fever. Was discharged on PPD #2 - Patient Instructions Diet: Usual Diet as Tolerated Activity: No Strenuous Activities Activity, Other: pelvic rest Driving: May Drive Today Showering/Bathing: May Shower Showering/Bathing, Other: May bathe Notify Provider of: Fever, Increased Pain, Swelling and Redness, Drainage, Nausea and/or Vomiting - Discharge Plan *PRESCRIPTION DRUG MONITORING PROGRAM REVIEWED*: No *COPY OF PRESCRIPTION DRUG MONITORING REPORT IN PATIENT VEENA: No Home Medications: Home Meds Acetaminophen [Pain Relief] 650 mg PO ASDIRECTED PRN 12/15/19 [History] Pnv No.103/Folic/Om3s/Fish Oil [ Gummies] 2 tab.chew PO DAILY 12/15/19 [ History] Docusate Sodium [Colace] 100 mg PO BID PRN cap 12/18/19 [Rx] Ibuprofen [Motrin] 600 mg PO Q6H PRN tablet 12/18/19 [Rx] Patient Handouts: and Mastitis, Care After Vaginal Delivery Referrals: Jacqueline Vaz MD [Primary Care Provider] - (At time of baby appointment (2-6 weeks)) - Discharge Summary/Plan Comment DC Time >30 min.: No - Patient Data Vitals - Most Recent: Last Vital Signs Temp 36.6 C 12/17/19 20:40 Pulse 75 12/17/19 20:40 Resp 13 12/17/19 20:40 BP 124/76 12/17/19 20:40 Pulse Ox 96 12/17/19 20:40 Weight - Most Recent: 83.007 kg I&O - Last 24 hours: Intake & Output 12/17/19 12/18/19 12/18/19 22:59 06:59 14:59 Intake Total 2 Balance 2 Lab Results - Last 24 hrs: Laboratory Results - last 24 hr 12/17/19 Range/Units 16:09 Blood Type O NEGATIVE Gel Antibody Screen Positive Screen 0 ros/5 flds - neg RhIG Candidate? Yes Rhogam Indicated Yes, baby rh unknown H Med Orders - Current: Current Medications Benzocaine/Menthol (Dermoplast Pain Relief [place]) 0 gm TOP ASDIRECTED PRN PRN Reason: Perineal Comfort Measure Last Admin: 12/16/19 17:26 Dose: 1 can Docusate Sodium (Colace) 100 mg PO BID PRN PRN Reason: Constipation Last Admin: 12/17/19 20:45 Dose: 100 mg Emollient Ointment (Lansinoh Hpa) 0 gm TOP ASDIRECTED PRN PRN Reason: Sore Nipples Ibuprofen (Motrin) 600 mg PO Q6H PRN PRN Reason: Mild pain or fever Last Admin: 12/17/19 20:46 Dose: 600 mg Witch Karla (Tucks) 1 pad TOP ASDIRECTED PRN PRN Reason: Pain Last Admin: 12/16/19 17:26 Dose: 1 container Discontinued Medications Bupivacaine HCl (Sensorcaine-Mpf 0.25%) 10 ml .ROUTE .STK-MED ONE Stop: 12/16/19 00:01 Diphenhydramine HCl (Benadryl) 25 mg IVPUSH Q6H PRN PRN Reason: Itching Ephedrine Sulfate (Ephedrine Sulfate) 5 mg IVPUSH ASDIRECTED PRN PRN Reason: HYPOTENTSION Fentanyl (Sublimaze) 100 mcg EPIDUR Q3H PRN PRN Reason: Pain Last Admin: 12/16/19 12:16 Dose: 100 mcg Fentanyl/Bupivacaine HCl (Fentanyl/Bupivacaine/Ns 2 Mcg-0.125% 100 Ml) 0 ml EPIDUR CONTINUOUS PRN PRN Reason: Pain Last Admin: 12/16/19 06:19 Dose: 100 ml Lactated Ringer's (Ringers, Lactated) 1,000 mls @ 100 mls/hr IV ASDIRECTED JEANETTE Last Admin: 12/16/19 13:07 Dose: 100 mls/hr Oxytocin/Lactated Ringer's (Pitocin In Lr 10 Units/1,000 Ml) 10 unit in 1,000 mls @ 500 mls/hr IV .CONTINUOUS JEANETTE Oxytocin/Lactated Ringer's (Pitocin In Lr 10 Units/1,000 Ml) 10 unit in 1,000 mls @ 12 mls/hr IV TITRATE JEANETTE; Protocol Last Titration: 12/16/19 08:32 Dose: 4 munits/min, 24 mls/hr Ampicillin Sodium 2 gm/ Sodium (Chloride) 100 mls @ 200 mls/hr IV Q6H JEANETTE Last Admin: 12/17/19 06:59 Dose: 200 mls/hr Gentamicin Sulfate 415 mg/ (Sodium Chloride) 110.375 mls @ 200 mls/hr IV ONETIME ONE Stop: 12/16/19 17:43 Last Admin: 12/16/19 18:18 Dose: 200 mls/hr Lidocaine HCl (Xylocaine 1%) Confirm Administered Dose 50 ml .ROUTE .STK-MED ONE Stop: 12/16/19 15:55 Last Admin: 12/16/19 16:27 Dose: 50 ml Lidocaine/Epinephrine (Xylocaine-Mpf 2%-Epi 1:200,000) 20 ml .ROUTE .STK-MED ONE Stop: 12/16/19 00:01 Misoprostol (Cytotec) 50 mcg VAG ONETIME ONE Stop: 12/15/19 19:53 Last Admin: 12/15/19 20:06 Dose: 50 mcg Misoprostol (Cytotec) Confirm Administered Dose 25 mcg .ROUTE .STK-MED ONE Stop: 12/15/19 19:59 Last Admin: 12/15/19 20:07 Dose: Not Given Misoprostol (Cytotec) 25 mcg VAG ONETIME ONE Stop: 12/16/19 01:05 Last Admin: 12/16/19 01:10 Dose: 25 mcg Nalbuphine HCl (Nubain) 10 mg IVPUSH Q2H PRN PRN Reason: Pain Nalbuphine HCl (Nubain) 10 mg IVPUSH Q3H PRN PRN Reason: Pain Last Admin: 12/16/19 03:26 Dose: 10 mg Ondansetron HCl (Zofran) 4 mg IVPUSH Q4H PRN PRN Reason: Nausea/Vomiting Sodium Chloride (Saline Flush) 10 ml FLUSH ASDIRECTED PRN PRN Reason: Keep Vein Open
[2019-12-18 07:52] VITALS: BP 105/76; PULSE 77
== END 2019-12-18 10:00 | disposition home or self-care (01) | DRG 807 ==
LOC: JD.OB 19:00 → OBSVTOIN 12-16 16:09 → JD.OB 12-16 16:10
PROVIDERS: ADMIT Obstetrics & Gynecology; ATTEND Obstetrics & Gynecology
PROC: 10E0XZZ Delivery of Products of Conception, External Approach (ICD-10-PCS; principal; 2019-12-16)
PROC: 10907ZC Drainage of Amniotic Fluid, Therapeutic from Products of Conception, Via Natural or Artificial Opening (ICD-10-PCS; 2019-12-16)
PROC: 3E0P7VZ Introduction of Hormone into Female Reproductive, Via Natural or Artificial Opening (ICD-10-PCS; 2019-12-16)
PROC: 3E033VJ Introduction of Other Hormone into Peripheral Vein, Percutaneous Approach (ICD-10-PCS; 2019-12-16)
PROC: 3E0R3BZ Introduction of Anesthetic Agent into Spinal Canal, Percutaneous Approach (ICD-10-PCS; 2019-12-16)
DX: O70.1 Second degree perineal laceration during delivery (principal); Z37.0 Single live birth; Z3A.39 39 weeks gestation of pregnancy; Z87.442 Personal history of urinary calculi
CPT/HCPCS: 36415; 51702; 59025; 59409; 85025; 85461; 86592; 86850; 86870; 86900; 86901; A9270-GY; J0290; J1580; J2001; J2300; J2590; J2790; J3010; J3490; J7050; J7120

== ENCOUNTER 2025-01-11 03:28 | Emergency (ER) | payer BC, OTHER ==
[2025-01-11 03:59] LABS: APPEARANCE,URINE CLEAR (Clear); BILIRUBIN,URINE NEGATIVE (Negative); COLOR,URINE LIGHT YELLOW (Yellow); GLUCOSE,URINE NEGATIVE (Negative); KETONES,URINE NEGATIVE (Negative); LEUKOCYTE ESTERASE,URINE TRACE (Negative); NITRITE,URINE NEGATIVE (Negative); OCCULT BLOOD,URINE NEGATIVE (Negative); PH,URINE 6.5 (5.0-8.0); PROTEIN,URINE NEGATIVE (Negative); UROBILINOGEN,URINE 0.2 (0.2-1.0)
[2025-01-11 04:08] LABS: BACTERIA,URINE FEW /hpf (FEW); MUCUS,URINE NOT SEEN /hpf (FEW); RBC,URINE 0-5 /hpf (0-5); SQUAMOUS EPITHELIAL CELLS,UR 0-5 /hpf (0-5)
[2025-01-11 04:25] LABS: BASOPHILS PERCENT AUTO 0.9 % (0.0-1.0); EOSINOPHILS ABSOLUTE AUTO 0.1 K/mm3 (0.0-0.4); EOSINOPHILS PERCENT AUTO 2.3 % (0.0-6.0); HEMATOCRIT 37.2 % (37.0-47.0); HEMOGLOBIN 12.3 gm/dl (12.0-16.0); IMMATURE GRAN ABSOLUTE AUTO 0.01 K/mm3 (0.00-0.05); IMMATURE GRAN PERCENT AUTO 0.2 % (0.0-0.4); LYMPHOCYTES ABSOLUTE AUTO 2.3 K/mm3 (1.0-4.8); LYMPHOCYTES PERCENT AUTO 51.7 % (24.0-44.0); MEAN CORPUSCULAR HGB CONC 33.1 g/dl (32.0-36.0); MEAN CORPUSCULAR VOLUME 93.7 fl (83.0-99.0); MEAN PLATELET VOLUME 9.3 fl (9.4-12.3); MONOCYTES ABSOLUTE AUTO 0.5 K/mm3 (0.0-0.8); MONOCYTES PERCENT AUTO 11.5 % (0.0-8.0); NEUTROPHILS ABSOLUTE AUTO 1.5 K/mm3 (1.8-7.7); NEUTROPHILS PERCENT AUTO 33.4 % (41.0-71.0); PLATELET COUNT,PLT 274 K/mm3 (150-400); RED BLOOD CELL COUNT 3.97 M/mm3 (4.10-5.30); WHITE BLOOD CELL COUNT,WBC 4.35 K/mm3 (3.9-11.3)
[2025-01-11 04:47] LABS: A/G RATIO 0.9 (1-2); ALBUMIN 3.4 g/dl (3.4-5.0); BILIRUBIN TOTAL 0.4 mg/dL (0.2-1.0); BUN/CREATININE RATIO 11.4 (14-18); CALCIUM 8.9 mg/dL (8.5-10.1); CREATININE 0.7 mg/dL (0.55-1.02); EST CRCL DRUG DOSING (CG) 98.09 mL/min; PROTEIN TOTAL,TP 7.1 g/dl (6.4-8.2)
[2025-01-11] MEDS: Acetaminophen 325 MG Tab PO ONE (05:19)
[2025-01-11] MEDS: Cephalexin 500 MG Cap PO ONE (05:41)
[2025-01-11 05:52] VITALS: BP 117/83; PULSE 69
== END 2025-01-11 05:45 | disposition home or self-care (01) ==
LOC: JD.ED 03:28
DX: N12 Tubulo-interstitial nephritis, not specified as acute or chronic (principal)
CPT/HCPCS: 36415; 74176; 80053; 81001; 83690; 84703; 85025; 87086; 99284; A9270